=== PATIENT | female | born 1995 | race Caucasian/White ===

== ENCOUNTER 2017-03-17 03:08 | Emergency (ER) | payer OTHER ==
--- NOTE | 2017-03-17 04:28 | PDOC ---
History of Present Illness - General History Source: Patient <aDrius Callaway - Last Filed: 03/17/17 04:29> - General History Source: Patient Exam Limitations: No Limitations - History of Present Illness Initial Comments: 03/17/17 04:35 The patient is a 21 year old female with no significant past medical history who presents to the ED for 2 days of sore throat and L ear pain. She denies fever, chills, or diaphoresis. She denies any sick contacts or recent travels. The patient denies cough, SOB, chest pain, and palpitations. The patient denies abdominal pain, nausea, vomiting, and diarrhea. Allergies: NKDA Social History: No alcohol, tobacco, or drug use reported. Past Surgical History: None reported PCP: None reported <Fallon Jacques - Last Filed: 03/17/17 04:36> - General Time Seen by Provider: 03/17/17 04:24 Past History - Past Medical History Asthma: No Psychiatric Problems: Yes (depression/ANXIETY) - Reproductive History (#): 2 Para: 1 Spontaneous : 1 - Immunization History Immunization Up to Date: Yes - Psycho/Social/Smoking Cessation Hx Anxiety: Yes Suicidal Ideation: No Smoking Status: No Smoking History: Current every day smoker Have you smoked in the past 12 months: Yes Number of Cigarettes Smoked Daily: 3 If you are a former smoker, when did you quit?: 2 months ago 'Breaking Loose' booklet given: 09/10/16 Hx Alcohol Use: No Drug/Substance Use Hx: No Substance Use Type: None Hx Substance Use Treatment: No <CesiaLunaDarius - Last Filed: 03/17/17 04:29> <Fallon Jacques - Last Filed: 03/17/17 04:36> - Past Medical History Allergies/Adverse Reactions: Allergies Allergy/AdvReac Type Severity Reaction Status Date / Time No Known Drug Allergies Allergy Verified 09/10/16 14:06 shellfish derived Allergy Verified 09/10/16 14:06 Home Medications: Ambulatory Orders Amox-Tr/K Cl [Augmentin 500Mg Tablet] 1 tab PO BID #20 tablet 03/17/17 Ibuprofen [Motrin] 600 mg PO TID #30 tablet 03/17/17 Review of Systems - Review of Systems Able to Perform ROS?: Yes Comments:: 03/17/17 04:35 CONSTITUTIONAL: Absent: fever, no chills, no fatigue EYES: Absent: visual changes ENT: +L ear pain, sore throat CARDIOVASCULAR: Absent: chest pain, no palpitations RESPIRATORY: Absent: cough, no SOB GI: Absent: abdominal pain, no nausea, no vomiting, no constipation, no diarrhea GENITOURINARY: Absent: dysuria, no frequency, no hematuria MUSCULOSKELETAL: Absent: back pain, no arthralgia, no myalgia SKIN: Absent: rash NEURO: Absent: headache <Fallon Jacques - Last Filed: 03/17/17 04:36> *Physical Exam - Physical Exam Comments: 03/17/17 04:36 GENERAL: Well-appearing, well-nourished. No apparent distress. HEENT: Normocephalic, atraumatic. PERRL, EOM intact. Fluid behind left TM, no light reflex, landmarks not visualized, + otalgia. Oropharynx is clear. CARDIOVASCULAR: Normal S1, S2. Regular rate and rhythm. PULMONARY: Clear to auscultation bilaterally. ABDOMEN: Soft, non-distended, non-tender. EXTREMITIES: Normal ROM in all four extremities. No gross deformities. SKIN: Warm, dry. No rash NEUROLOGICAL: No focal neurological deficits. <Fallon Jacques - Last Filed: 03/17/17 04:36> Medical Decision Making - Medical Decision Making 03/17/17 04:30 Dr. Callaway: The scribe's documentation has been prepared under my direction and personally reviewed by me in its entirery. I confirm that the note above accurately reflects all work, treatment, procedures, and medical decision making performed by me. <Darius Callaway - Last Filed: 03/17/17 04:29> *DC/Admit/Observation/Transfer - Discharge Dispostion Admit: No <Darius Callaway - Last Filed: 03/17/17 04:29> - Attestations Scribe Attestion: 03/17/17 04:36 Documentation prepared by Fallon Jacques, acting as emergency medical dispatcher for Darius Callaway MD/. <Fallon Jacques - Last Filed: 03/17/17 04:36> Diagnosis at time of Disposition: Otitis media Qualifiers: Chronicity: acute Laterality: left - Discharge Dispostion Disposition: HOME Condition at time of disposition: Stable - Prescriptions Prescriptions: Amox-Tr/K Cl [Augmentin 500Mg Tablet] 1 tab PO BID #20 tablet Ibuprofen [Motrin] 600 mg PO TID #30 tablet - Patient Instructions Printed Discharge Instructions: DI for Otitis Media (Middle Ear Infection)- Child
== END 2017-03-17 04:24 | disposition home or self-care (01) ==
LOC: JER 03:08
DX: H66.92 Otitis media, unspecified, left ear (principal); F41.8 Other specified anxiety disorders; F17.210 Nicotine dependence, cigarettes, uncomplicated
CPT/HCPCS: 99281-25

== ENCOUNTER 2017-04-25 09:50 | Emergency (ER) | payer OTHER ==
[2017-04-25 10:00] VITALS: BP 123/74; PULSE 75; TEMP 98; BMI 20.9
[2017-04-25] MEDS ORDERED: IBUPROFEN 400 MG TABLET (FP) PO ONE ×2 (10:47→10:52)
[2017-04-25 11:08] LABS: BASOPHIL 0.3 % (0-2.0); EOSINOPHIL 0.4 % (0-4.5); MCH 29.6 pg (25.7-33.7); MCHC 32.9 g/dl (32.0-36.0); MEAN PLT VOLUME 9.4 fl (7.5-11.1); NEUTROPHILS 60.3 % (42.8-82.8); PLATELET COUNT 218 K/MM3 (134-434); RDW 12.9 % (11.6-15.6); WHITE BLOOD COUNT 4.7 K/mm3 (4.0-10.0)
--- NOTE | 2017-04-25 11:34 | PDOC ---
History of Present Illness - General Chief Complaint: Pain Stated Complaint: NECK PROBLEM Time Seen by Provider: 04/25/17 10:07 History Source: Patient Exam Limitations: No Limitations - History of Present Illness Initial Comments: 04/25/17 11:34 Patient is a 22-year-old female, no significant medical history currently only taking control presents with painful lump to right lateral upper back. Area with no erythema, patient with no history of abscesses. Patient states pain is 10 out of 10 at times took a Valium last night which she takes for her anxiety and it helped her go to sleep and relieved the pain. Patient denies fever, no chest pain, no shortness of breath. Occasional pain radiating down the right arm with no numbness or tingling or neuro or sensory difficulty. Past Medical History: Denies. Allergies: No known allergies Medications: control Family History: Non-contributory Social History: Denies smoking, alcohol use, or IVDU Review of Systems GENERAL/CONSTITUTIONAL: No fever or chills. No weakness. No weight change. HEAD, EYES, EARS, NOSE AND THROAT: No change in vision. No ear pain or discharge. No sore throat. CARDIOVASCULAR: No chest pain or shortness of breath. RESPIRATORY: No cough, wheezing, or hemoptysis. GASTROINTESTINAL: No nausea, vomiting, diarrhea or constipation. No rectal bleeding. GENITOURINARY: No dysuria, frequency, or change in urination. MUSCULOSKELETAL: No joint or muscle swelling or pain. No neck or back pain. SKIN : No rash or easy bruising. Painful palpable lump to right lateral upper back NEUROLOGIC: No headache, vertigo, loss of consciousness, or loss of sensation. ENDOCRINE: No increased thirst. No abnormal weight change. HEMATOLOGIC/LYMPHATIC: No anemia, easy bleeding, or history of blood clots. ALLERGIC/IMMUNOLOGIC: No hives or skin allergy. No latex allergy. Physical Exam: GENERAL: The patient is awake, alert, and fully oriented, in no acute distress. EYES: Pupils equal, round and reactive to light, extraocular movements intact, sclera anicteric, conjunctiva clear. ENT: Ears normal, nares patent, oropharynx clear without exudates. Moist mucous membranes. No uvula deviation NECK: Normal range of motion, supple without lymphadenopathy, JVD, or masses. LUNGS: Breath sounds equal, clear to auscultation bilaterally. No wheezes, and no crackles. HEART: Regular rate and rhythm, normal S1 and S2 without murmur, rub or gallop. ABDOMEN: Soft, nontender, normoactive bowel sounds. No guarding, no rebound. No masses. No bruising or abrasions MUSCULOSKELETAL: Normal range of motion, no edema. No clubbing or cyanosis. No cords, erythema, or tenderness. No CVA Tenderness with fist. NEUROLOGICAL: Cranial nerves II through XII grossly intact. Normal speech, normal gait. SKIN: Warm, Dry, normal turgor, no rashes or lesions noted. Lateral upper back painful palpable pea sized nodule, no erythema, no edema, no warmth to the area. Past History - Past Medical History Allergies/Adverse Reactions: Allergies Allergy/AdvReac Type Severity Reaction Status Date / Time No Known Drug Allergies Allergy Verified 04/25/17 10:00 shellfish derived Allergy Verified 04/25/17 10:00 Home Medications: Ambulatory Orders Diazepam [Valium] 2 mg PO DAILY 04/25/17 Ibuprofen [Motrin -] 400 mg PO QID #28 tablet 04/25/17 Asthma: No Psychiatric Problems: Yes (depression/ANXIETY) - Reproductive History (#): 2 Para: 1 Spontaneous : 1 - Immunization History Immunization Up to Date: Yes - Psycho/Social/Smoking Cessation Hx Anxiety: Yes Suicidal Ideation: No Smoking Status: No Smoking History: Current every day smoker Have you smoked in the past 12 months: Yes Number of Cigarettes Smoked Daily: 4 If you are a former smoker, when did you quit?: 2 months ago Information on smoking cessation initiated: No 'Breaking Loose' booklet given: 09/10/16 Hx Alcohol Use: No Drug/Substance Use Hx: No Substance Use Type: None Hx Substance Use Treatment: No *Physical Exam - Vital Signs Last Vital Signs Temp Pulse Resp BP Pulse Ox 98 F 75 18 123/74 100 04/25/17 09:57 04/25/17 09:57 04/25/17 09:57 04/25/17 09:57 04/25/17 09:57 ED Treatment Course - LABORATORY CBC & Chemistry Diagram: 04/25/17 11:00 - ADDITIONAL ORDERS Additional order review: 04/25/17 11:00 RBC 4.55 MCV 90.0 MCHC 32.9 RDW 12.9 MPV 9.4 Neutrophils % 60.3 Lymphocytes % 31.6 Monocytes % 7.4 Eosinophils % 0.4 Basophils % 0.3 - Medications Given in the ED: ED Medications Discontinued Medications Generic Name Dose Route Start Last Admin Trade Name Misti PRN Reason Stop Dose Admin Ibuprofen 400 mg 04/25/17 10:47 04/25/17 10:52 Motrin - PO 04/25/17 10:48 400 mg ONCE ONE Administration Medical Decision Making - Medical Decision Making 04/25/17 11:42 A/P : Nodule to the right upper back. No evidence of abscess. Will draw a CBC, rule out infectious process. Most likely will need to be seen by derm. Possible cyst. Motrin for pain Will DC with instruction to follow up with dermatology. Motrin for pain. Laboratory Results - last 24 hr 04/25/17 11:00 WBC 4.7 RBC 4.55 Hgb 13.5 Hct 40.9 MCV 90.0 MCH 29.6 MCHC 32.9 RDW 12.9 Plt Count 218 MPV 9.4 Neutrophils % 60.3 Lymphocytes % 31.6 Monocytes % 7.4 Eosinophils % 0.4 Basophils % 0.3 Labs reviewed and unremarkable. I discussed the physical exam findings, ancillary test results and final diagnoses with the patient. I answered all of the patient's questions. The patient was satisfied with the care received and felt comfortable with the discharge plan and treatment plan. The patient will call to arrange follow-up and will return to the Emergency Department with any new, persistent or worsening symptoms. *DC/Admit/Observation/Transfer Diagnosis at time of Disposition: Cyst - Discharge Dispostion Disposition: HOME Condition at time of disposition: Good Admit: No - Prescriptions Prescriptions: Ibuprofen [Motrin -] 400 mg PO QID #28 tablet - Referrals Referrals: [facility] [Provider Group] Tad Escamilla [Non Staff, Medical] - ([phone]) - Patient Instructions Additional Instructions: Please monitor area for any increased redness swelling or signs of infection Recommend follow-up with dermatology as soon as possible for evaluation, Dr. escamilla Follow up with [facility] for primary care doctor - Post Discharge Activity Work/School Note: Back to Work
== END 2017-04-25 11:52 | disposition home or self-care (01) ==
LOC: JERFT 09:50
DX: L72.8 Other follicular cysts of the skin and subcutaneous tissue (principal)
CPT/HCPCS: 36415; 85025; 99281-25

== ENCOUNTER 2017-04-29 10:49 | Emergency (ER) | payer OTHER ==
[2017-04-29 10:56] VITALS: BMI 20.9
[2017-04-29] MEDS ORDERED: ONDANSETRON 4 MG/2 ML VIAL IVPUSH ONE (11:51)
[2017-04-29] MEDS ORDERED: SODIUM CHLORIDE 1,000 ML IV STA (11:51)
[2017-04-29] MEDS ORDERED: ONDANSETRON 4 MG/2 ML VIAL ONE (12:00)
--- NOTE | 2017-04-29 12:02 | PDOC ---
History of Present Illness - General History Source: Patient - History of Present Illness Timing/Duration: reports: constant Pain Radiation: reports: LUQ <Sosa Bower - Last Filed: 04/29/17 13:26> <Randy Teresa - Last Filed: 04/29/17 18:08> - General Chief Complaint: Vomiting/Diarrhea Stated Complaint: ABD PAIN/VOMITING Time Seen by Provider: 04/29/17 11:37 Past History - Past Medical History Asthma: No Psychiatric Problems: Yes (depression/ANXIETY) - Reproductive History (#): 2 Para: 1 Spontaneous : 1 - Immunization History Immunization Up to Date: Yes - Psycho/Social/Smoking Cessation Hx Anxiety: Yes Suicidal Ideation: No Smoking Status: No Smoking History: Former smoker Have you smoked in the past 12 months: Yes Number of Cigarettes Smoked Daily: 4 If you are a former smoker, when did you quit?: 2 months ago Information on smoking cessation initiated: No 'Breaking Loose' booklet given: 09/10/16 Hx Alcohol Use: No Drug/Substance Use Hx: No Substance Use Type: None Hx Substance Use Treatment: No <Sosa Bower - Last Filed: 04/29/17 13:26> <Randy Teresa - Last Filed: 04/29/17 18:08> - Past Medical History Allergies/Adverse Reactions: Allergies Allergy/AdvReac Type Severity Reaction Status Date / Time No Known Drug Allergies Allergy Verified 04/29/17 10:52 shellfish derived Allergy Verified 04/29/17 10:52 Home Medications: Ambulatory Orders NK [No Known Home Medication] 04/29/17 Review of Systems - Review of Systems Constitutional: No: Chills, Fever ABD/GI: Yes: Diarrhea, Nausea, Vomiting. No: Blood Streaked Bowels, Constipated <Mone BowerJovannyTahmina - Last Filed: 04/29/17 13:26> *Physical Exam - Vital Signs Last Vital Signs Temp Pulse Resp BP Pulse Ox 97.7 F 96 H 16 112/83 97 04/29/17 10:52 04/29/17 10:52 04/29/17 10:52 04/29/17 10:52 04/29/17 10:52 - Physical Exam General Appearance: Yes: Appropriately Dressed. No: Apparent Distress HEENT: positive: Normal Voice Neck: positive: Supple Respiratory/Chest: negative: Respiratory Distress Gastrointestinal/Abdominal: positive: Soft. negative: Tender Integumentary: positive: Dry, Warm Neurologic: positive: Fully Oriented, Alert, Normal Mood/Affect <Sosa Bower - Last Filed: 04/29/17 13:26> - Vital Signs Last Vital Signs Temp Pulse Resp BP Pulse Ox 98.2 F 87 20 135/80 98 04/29/17 13:46 04/29/17 13:46 04/29/17 13:46 04/29/17 13:46 04/29/17 13:46 <Randy Teresa - Last Filed: 04/29/17 18:08> ED Treatment Course - LABORATORY CBC & Chemistry Diagram: 04/29/17 12:00 04/29/17 12:00 <Mone BowerElen - Last Filed: 04/29/17 13:26> - LABORATORY CBC & Chemistry Diagram: 04/29/17 12:00 04/29/17 12:00 - ADDITIONAL ORDERS Additional order review: Laboratory Results 04/29/17 04/29/17 12:00 11:57 Sodium 140 Potassium 4.1 Chloride 107 Carbon Dioxide 24 Anion Gap 9 BUN 13 Creatinine 0.8 Creat Clearance w eGFR > 60 Random Glucose 84 Calcium 9.4 Total Bilirubin 0.6 AST 18 ALT 19 Alkaline Phosphatase 67 D Total Protein 7.8 Albumin 4.2 Urine Color Yellow Urine Appearance Clear Urine pH 7.0 Ur Specific [place] 1.020 Urine Protein 1+ H Urine Glucose (UA) Negative Urine Ketones Negative Urine Blood 2+ H Urine Nitrite Negative Urine Bilirubin Negative Urine Urobilinogen Negative Ur Leukocyte Esterase Negative Urine RBC 3 Urine WBC 18 Ur Epithelial Cells Moderate Urine Mucus Many Urine HCG, Qual Negative 04/29/17 12:00 RBC 4.83 MCV 91.2 MCHC 32.5 RDW 13.1 MPV 9.2 Neutrophils % 87.9 H D Lymphocytes % 6.7 L D Monocytes % 5.2 Eosinophils % 0.1 Basophils % 0.1 - Medications Given in the ED: ED Medications Discontinued Medications Generic Name Dose Route Start Last Admin Trade Name Freq PRN Reason Stop Dose Admin Sodium Chloride 1,000 mls @ 1,000 mls/hr 04/29/17 11:51 04/29/17 12:23 Normal Saline - IV 04/29/17 12:50 1,000 mls/hr ASDIR STA Administration Ondansetron HCl 4 mg 04/29/17 11:51 04/29/17 12:09 Zofran Injection IVPUSH 04/29/17 11:52 4 mg ONCE ONE Administration <Randy Teresa - Last Filed: 04/29/17 18:08> Medical Decision Making - Medical Decision Making 04/29/17 11:56 22-year-old female, no significant history here with sudden onset, nausea, vomiting and left upper abdominal pain that started this a.m. No unusual food, sick contacts, recent travel or abx use. See exam Probable gastroenteritis Stable and well kathi a/ benign abd -supportive tx -check basic labs 04/29/17 12:02 04/29/17 13:26 Labs unremarkable. Patient reports feeling better. Will dc with supportive treatment 04/29/17 13:34 <Sosa Bower - Last Filed: 04/29/17 13:26> - Medical Decision Making 04/29/17 18:05 The patient was seen and evaluated in conjunction with KENDRICK Bower under my direct supervision, ancillary studies were reviewed. I agree with the plan as outlined by KENDRICK Bower . <Randy Teresa - Last Filed: 04/29/17 18:08> *DC/Admit/Observation/Transfer <Sosa Bower - Last Filed: 04/29/17 13:26> <Randy Teresa - Last Filed: 04/29/17 18:08> Diagnosis at time of Disposition: Diarrhea Qualifiers: Diarrhea type: unspecified type Qualified Code(s): R19.7 - Diarrhea, unspecified - Discharge Dispostion Disposition: HOME Condition at time of disposition: Improved - Patient Instructions Printed Discharge Instructions: DI for Viral Gastroenteritis -- Adult Additional Instructions: Maintain adequate hydration, for the remainder of your symptoms, maintain a bland diet such as bananas, rice, applesauce and toast. These foods can help make your stools firmer and also replete certainly essential electrolytes. Please follow up with your primary care physician as needed
[2017-04-29 12:20] LABS: BASOPHIL 0.1 % (0-2.0); EOSINOPHIL 0.1 % (0-4.5); MCH 29.6 pg (25.7-33.7); MCHC 32.5 g/dl (32.0-36.0); MEAN CELL VOLUME 91.2 fl (80-96); MEAN PLT VOLUME 9.2 fl (7.5-11.1); NEUTROPHILS 87.9 % (42.8-82.8); PLATELET COUNT 224 K/MM3 (134-434); RDW 13.1 % (11.6-15.6); WHITE BLOOD COUNT 11.3 K/mm3 (4.0-10.0)
[2017-04-29 12:28] LABS: URINE APPEARANCE CLEAR; URINE BILIRUBIN NEGATIVE (NEGATIVE); URINE BLOOD 2+ (NEGATIVE); URINE COLOR YELLOW; URINE GLUCOSE (UA) NEGATIVE (NEGATIVE); URINE KETONE NEGATIVE (NEGATIVE); URINE LEUK ESTERASE NEGATIVE (NEGATIVE); URINE NITRITE NEGATIVE (NEGATIVE); URINE UROBILINOGEN NEGATIVE mg/dL (0.2-1.0)
[2017-04-29 12:29] LABS: URINE PROTEIN 1+ (NEGATIVE)
[2017-04-29 13:02] LABS: URINE MUCUS MANY; URINE RBC 3 /hpf (0-3); URINE WBC 18 /hpf (3-5)
[2017-04-29 13:03] LABS: ALBUMIN 4.2 g/dl (3.4-5.0); ANION GAP 9 (8-16); BILIRUBIN,TOTAL 0.6 mg/dL (0.2-1.0); CALCIUM 9.4 mg/dL (8.5-10.1); CO2 24 mmol/L (21-32); CREATININE 0.8 mg/dL (0.55-1.02); GLUCOSE,RANDOM 84 mg/dL (74-106); SGOT/AST 18 U/L (15-37); SGPT/ALT 19 U/L (12-78); TOT PROT 7.8 g/dl (6.4-8.2)
[2017-04-29 13:04] LABS: ALK PHOS 67 U/L (45-117)
[2017-04-29 13:47] VITALS: BP 135/80; PULSE 87; TEMP 98.2
== END 2017-04-29 13:47 | disposition home or self-care (01) ==
LOC: JER 10:49
PROC: 3E0337Z Introduction of Electrolytic and Water Balance Substance into Peripheral Vein, Percutaneous Approach (ICD-10-PCS; principal; 2017-04-29)
PROC: 3E033GC Introduction of Other Therapeutic Substance into Peripheral Vein, Percutaneous Approach (ICD-10-PCS; 2017-04-29)
DX: A08.4 Viral intestinal infection, unspecified (principal); B97.89 Other viral agents as the cause of diseases classified elsewhere
CPT/HCPCS: 36415; 80053; 81003; 81015; 84703; 85025; 96361; 96374; 99282-25

== ENCOUNTER 2017-06-22 12:23 | Emergency (ER) | payer SELFPAY ==
[2017-06-22 12:54] VITALS: BP 115/74; PULSE 108; TEMP 98.5; BMI 20.9
[2017-06-22] MEDS ORDERED: DIPHTH,PERTUSS(ACELL),TET 0.5 ML DISP.SYRIN IM ONE (13:53)
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
[2017-06-22] MEDS ORDERED: KETOROLAC TROMETHAMINE 60 MG/2 ML VIAL IM ONE (15:12)
[2017-06-22] MEDS ORDERED: KETOROLAC TROMETHAMINE 60 MG/2 ML VIAL ONE (15:28)
== END 2017-06-22 15:32 | disposition home or self-care (01) ==
LOC: JERFT 12:23
PROC: 3E0234Z Introduction of Serum, Toxoid and Vaccine into Muscle, Percutaneous Approach (ICD-10-PCS; principal; 2017-06-22)
PROC: 3E0233Z Introduction of Anti-inflammatory into Muscle, Percutaneous Approach (ICD-10-PCS; 2017-06-22)
DX: M54.2 Cervicalgia (principal); S51.852A Open bite of left forearm, initial encounter; Y04.1XXA Assault by human bite, initial encounter; Y93.89 Activity, other specified; Y92.89 Other specified places as the place of occurrence of the external cause; Y99.8 Other external cause status
CPT/HCPCS: 84703; 90715; 99281-25

== ENCOUNTER 2017-12-27 14:07 | Emergency (ER) | payer OTHER ==
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
[2017-12-27] MEDS ORDERED: ACETAMINOPHEN 325 MG TABLET (FP) PO ONE (14:32)
[2017-12-27 14:36] VITALS: BMI 20.9
[2017-12-27] MEDS ORDERED: BACITRACIN 0.9 GM PACKET ONE (16:31)
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
[2017-12-27] MEDS ORDERED: DIPHTH,PERTUSS(ACELL),TET 0.5 ML DISP.SYRIN IM ONE (17:36)
[2017-12-27 18:21] VITALS: BP 113/73; PULSE 72; TEMP 98.2
== END 2017-12-27 18:21 | disposition home or self-care (01) ==
LOC: JER 14:07
DX: M79.672 Pain in left foot (principal); V47.6XXA Car passenger injured in collision with fixed or stationary object in traffic accident, initial encounter; Y93.89 Activity, other specified; Y92.410 Unspecified street and highway as the place of occurrence of the external cause; Z87.891 Personal history of nicotine dependence
CPT/HCPCS: 72170-TC-FY; 72220-TC-FY; 73610-TC-LT-FY; 73630-TC-LT; 99282-25

== ENCOUNTER 2018-02-16 12:48 | Emergency (ER) | payer OTHER ==
[2018-02-16 12:55] VITALS: BP 102/68; PULSE 106; TEMP 98.7; BMI 20.9
[2018-02-16] MEDS ORDERED: predniSONE 20 MG TABLET (UD) ONE (13:37)
--- NOTE | 2018-02-16 13:41 | PDOC ---
History of Present Illness - General Chief Complaint: Rash Stated Complaint: RASH Time Seen by Provider: 02/16/18 13:28 History Source: Patient - History of Present Illness Timing/Duration: reports: yesterday Location: reports: generalized Past History - Past Medical History Allergies/Adverse Reactions: Allergies Allergy/AdvReac Type Severity Reaction Status Date / Time No Known Drug Allergies Allergy Verified 02/16/18 12:52 shellfish derived Allergy Verified 02/16/18 12:52 Home Medications: Ambulatory Orders Loratadine [Claritin] 10 mg PO DAILY #7 tablet 02/16/18 Prednisone [Deltasone] 40 mg PO DAILY #8 tablet 02/16/18 Asthma: No COPD: No Psychiatric Problems: Yes (depression/ANXIETY) - Reproductive History (#): 2 Para: 1 Spontaneous : 1 - Immunization History Immunization Up to Date: Yes - Suicide/Smoking/Psychosocial Hx Smoking Status: No Smoking History: Never smoked Have you smoked in the past 12 months: Yes Number of Cigarettes Smoked Daily: 4 If you are a former smoker, when did you quit?: 2 months ago Information on smoking cessation initiated: No 'Breaking Loose' booklet given: 09/10/16 Hx Alcohol Use: No Drug/Substance Use Hx: No Substance Use Type: Marijuana Hx Substance Use Treatment: No Review of Systems - Review of Systems Constitutional: No: Fever Respiratory: No: Shortness of Breath, Stridor, Wheezing Integumentary: Yes: Pruritus, Rash *Physical Exam - Vital Signs Last Vital Signs Temp Pulse Resp BP Pulse Ox 98.7 F 106 H 16 102/68 97 02/16/18 12:52 02/16/18 12:52 02/16/18 12:52 02/16/18 12:52 02/16/18 12:52 - Physical Exam General Appearance: Yes: Appropriately Dressed. No: Apparent Distress HEENT: positive: Normal Voice, Other (no angioedema) Neck: positive: Supple. negative: Stridor Respiratory/Chest: positive: Lungs Clear, Normal Breath Sounds. negative: Respiratory Distress Integumentary: positive: Dry, Warm, Hives (hives to trunk, upper extremities and lower extremities) Neurologic: positive: Fully Oriented, Alert, Normal Mood/Affect Medical Decision Making - Medical Decision Making 02/16/18 13:37 22-year-old female, no significant history here with pruritic rash, generalized pruritic rash that patient develop yesterday while in her friend's house. Denies any new topical agents such as detergents, lotions, soaps and no history of bites. Took 50 mg of Benadryl this a.m. with no significant relief. Denies lip, tongue swelling or shortness of breath. No known food or drug allergies and no history of anaphylaxis. Patient well-appearing and stable with generalized hives. Dose of prednisone given in ED, will sent home with prednisone taper and antihistamine. Reasons to return discussed with patient *DC/Admit/Observation/Transfer Diagnosis at time of Disposition: Hives - Discharge Dispostion Disposition: HOME Condition at time of disposition: Good - Prescriptions Prescriptions: Loratadine [Claritin] 10 mg PO DAILY #7 tablet Prednisone [Deltasone] 40 mg PO DAILY #8 tablet - Referrals - Patient Instructions Printed Discharge Instructions: DI for Hives Additional Instructions: Take medications as prescribed and if symptoms worsen, return to the ED - Post Discharge Activity
[2018-02-16] MEDS ORDERED: predniSONE 20 MG TABLET (UD) PO ONE (13:42)
== END 2018-02-16 13:45 | disposition home or self-care (01) ==
LOC: JERFT 12:48 → JER 12:48 → JERFT 13:45
DX: L50.8 Other urticaria (principal)
CPT/HCPCS: 99281-25

== ENCOUNTER 2019-08-06 22:02 | Emergency (ER) | payer OTHER ==
[2019-08-06 22:21] VITALS: TEMP 98.3; BMI 21.9
--- NOTE | 2019-08-06 22:44 | PDOC ---
History of Present Illness - General Chief Complaint: Cold Symptoms Stated Complaint: BREATHING PROBLEM Time Seen by Provider: 08/06/19 22:29 History Source: Patient - History of Present Illness Initial Comments: 08/07/19 01:23 24-year-old female complaining of chest congestion and cough, nasal congestion with subjective fevers for the last 2 days. Patient reports that she quit smoking 2 days ago due to chest congestion. Denies recent travel, OCP use, prolonged sitting. Past medical history of asthma exacerbation with viral illness Patient reports that she does not have any albuterol medication at home. Past History - Past Medical History Allergies/Adverse Reactions: Allergies Allergy/AdvReac Type Severity Reaction Status Date / Time No Known Drug Allergies Allergy Verified 02/16/18 12:52 shellfish derived Allergy Verified 02/16/18 12:52 Home Medications: Ambulatory Orders Loratadine [Claritin] 10 mg PO DAILY #7 tablet 02/16/18 Prednisone [Deltasone] 40 mg PO DAILY #8 tablet 02/16/18 Albuterol Sulfate Inhaler - [Ventolin HFA Inhaler -] 1 - 2 inh PO Q4H #1 inhaler 08/07/19 Azithromycin [Zithromax 250mg Tablets -] 250 mg PO UTDICT #6 tab 08/07/19 predniSONE [Deltasone -] 40 mg PO DAILY #6 tablet 08/07/19 Asthma: No COPD: No Psychiatric Problems: Yes (depression/ANXIETY) - Reproductive History (#): 2 Para: 1 Spontaneous : 1 - Immunization History Immunization Up to Date: Yes - Psycho Social/Smoking Cessation Hx Smoking Status: No Smoking History: Former smoker Have you smoked in the past 12 months: Yes Number of Cigarettes Smoked Daily: 4 If you are a former smoker, when did you quit?: t-3 Information on smoking cessation initiated: Yes 'Breaking Loose' booklet given: 09/10/16 Hx Alcohol Use: No Drug/Substance Use Hx: No Substance Use Type: Marijuana Hx Substance Use Treatment: No Review of Systems - Review of Systems Able to Perform ROS?: Yes Constitutional: Yes: Fever (subjective) Respiratory: Yes: Cough Cardiac (ROS): Yes: Chest Tightness ABD/GI: No: Symptoms Reported, See HPI, Abdominal Distended, Abd. Pain w/ defecation, Blood Streaked Bowels, Constipated, Diarrhea, Difficulty Swallowing , Nausea, Poor Appetite, Poor Fluid Intake, Rectal Bleeding, Vomiting, Indigestion, Abdominal cramping, Tarry Stools, Other *Physical Exam - Vital Signs Last Vital Signs Temp Pulse Resp BP Pulse Ox 98.3 F 96 H 22 H 114/77 98 08/06/19 22:16 08/06/19 22:16 08/06/19 22:16 08/06/19 22:16 08/06/19 22:16 - Physical Exam General Appearance: Yes: Appropriately Dressed HEENT: positive: Tonsillar Erythema Neck: positive: Lymphadenopathy (R), Lymphadenopathy (L) Respiratory/Chest: positive: Lungs Clear, Normal Breath Sounds Cardiovascular: positive: Regular Rhythm, Regular Rate Gastrointestinal/Abdominal: positive: Normal Bowel Sounds, Soft Integumentary: positive: Normal Color, Dry, Warm Neurologic: positive: Fully Oriented, Alert, Normal Mood/Affect ED Treatment Course - RADIOLOGY Radiology Studies Ordered: Category Date Time Status CHEST PA & LAT [RAD] Stat Radiology 08/06/19 22:43 Ordered ED Progress Note - Progress Note Progress Note: 08/07/19 01:29 A: bronchitis P: chest xray ekg rapid strep duoneb x1 prednisone tylenol Discharge - Discharge Information Problems reviewed: Yes Clinical Impression/Diagnosis: Bronchitis Disposition: HOME - Additional Discharge Information Prescriptions: Albuterol Sulfate Inhaler - [Ventolin HFA Inhaler -] 1 - 2 inh PO Q4H #1 inhaler Azithromycin [Zithromax 250mg Tablets -] 250 mg PO UTDICT #6 tab predniSONE [Deltasone -] 40 mg PO DAILY #6 tablet - Follow up/Referral - Patient Discharge Instructions Patient Printed Discharge Instructions: DI for Acute Bronchitis Additional Instructions: Use albuterol every 4-6 hours as needed for cough. Use Take azithromycin as prescribed. Start prednisone tomorrow evening It is important that you follow-up with your primary doctor Please return to the emergency room for any worsening symptoms - Post Discharge Activity Work/Back to School Note: Back to Work
[2019-08-06] MEDS ORDERED: ALBUTEROL SO4 2.5/IPRATROPIUM 0.5 INH SOL 3 ML VIAL.NEB. NEB ONE (23:15)
[2019-08-06] MEDS: ALBUTEROL SO4 2.5/IPRATROPIUM 0.5 INH SOL 3 ML VIAL.NEB. NEB SCH ×3 (23:27→23:28)
[2019-08-07] MEDS ORDERED: ACETAMINOPHEN 325 MG TABLET (FP) ONE (00:58)
[2019-08-07] MEDS ORDERED: predniSONE 20 MG TABLET (UD) PO ONE (01:32)
[2019-08-07 01:43] VITALS: BP 110/82; PULSE 84
[2019-08-07] MEDS ORDERED: predniSONE 20 MG TABLET (UD) ONE (01:51)
--- NOTE | 2019-08-07 12:11 | EKG ---
Test Reason : Blood Pressure : / mmHG Vent. Rate : 078 BPM Atrial Rate : 078 BPM P-R Int : 116 ms QRS Dur : 074 ms QT Int : 370 ms P-R-T Axes : 068 087 026 degrees QTc Int : 421 ms NORMAL SINUS RHYTHM BIATRIAL ENLARGEMENT ABNORMAL ECG WHEN COMPARED WITH ECG OF 22-DEC-2015 13:46, NO SIGNIFICANT CHANGE WAS FOUND Confirmed by MAYCO ALONSO MD ([id number]) on 08/07/2019 12:10:48 PM Referred By: Confirmed By:MAYCO ALONSO MD
== END 2019-08-07 01:55 | disposition home or self-care (01) ==
LOC: JER 22:02
DX: J20.9 Acute bronchitis, unspecified (principal); Z91.013 Allergy to seafood; Z87.891 Personal history of nicotine dependence; Z86.59 Personal history of other mental and behavioral disorders; Z87.09 Personal history of other diseases of the respiratory system
CPT/HCPCS: 71046-TC-FY; 84703; 87070; 87880; 93005; 93010; 99283-25

== ENCOUNTER 2019-12-10 12:06 | Emergency (ER) | payer OTHER ==
[2019-12-10 12:28] VITALS: BP 103/73; PULSE 70; TEMP 97.9; BMI 20.9
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
[2019-12-10] MEDS ORDERED: ACETAMINOPHEN 500 MG TABLET (FP) PO ONE (12:30)
[2019-12-10] MEDS ORDERED: ACETAMINOPHEN 325 MG TABLET (FP) ONE (12:41)
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
== END 2019-12-10 14:23 | disposition home or self-care (01) ==
LOC: JERFT 12:06
DX: G44.319 Acute post-traumatic headache, not intractable (principal); S09.8XXA Other specified injuries of head, initial encounter; Y04.2XXA Assault by strike against or bumped into by another person, initial encounter; Y93.89 Activity, other specified; Y92.89 Other specified places as the place of occurrence of the external cause; Y99.8 Other external cause status; Y07.411 Sister, perpetrator of maltreatment and neglect; F41.8 Other specified anxiety disorders; F32.9 Major depressive disorder, single episode, unspecified; Z87.891 Personal history of nicotine dependence
CPT/HCPCS: 70450-TC; 99284-25

== ENCOUNTER 2020-05-15 11:08 | Emergency (ER) | payer OTHER ==
[2020-05-15 11:17] VITALS: BP 101/64; PULSE 100; BMI 22.9
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
[2020-05-15 13:08] LABS: ARTERIAL BLD GAS O2 SATURATION 98.1 mmHg (95-98); ARTERIAL BLOOD GAS PO2 106.9 mmHg (80-100); ARTERIAL BLOOD GAS pH 7.433 (7.350-7.450)
== END 2020-05-15 13:05 | disposition home or self-care (01) ==
LOC: JER 11:08
DX: T58.91XA Toxic effect of carbon monoxide from unspecified source, accidental (unintentional), initial encounter (principal)
CPT/HCPCS: 36600; 82375; 82803; 83050; 99283-25

== ENCOUNTER 2020-05-27 20:48 | Emergency (ER) | payer OTHER ==
[2020-05-27 21:00] VITALS: TEMP 98.9; BMI 22.9
--- NOTE | 2020-05-27 22:02 | PDOC ---
History of Present Illness - General Chief Complaint: Vaginal Bleeding Stated Complaint: 6 WK TN/VAGINAL BLEEDING Time Seen by Provider: 05/27/20 21:29 History Source: Patient Exam Limitations: No Limitations - History of Present Illness Initial Comments: 05/27/20 22:00 25-year-old female no past medical history G2, P1 presented to ED at 6 weeks gestation with vaginal spotting for 2 days. Patient states that yesterday she used 2 pads not soaked and today as well used 1 pad. Patient is complaining of lower abdominal cramping without nausea vomiting diarrhea. Patient has 1 sexual partner and is monogamous. Pt otherwise denies: fevers, chills, syncope, lightheadedness, dizziness, headaches, neck pain, chest pain, shortness of breath, palpitations, back pain, abdominal pain, nausea, vomiting, diarrhea, constipation. Past History - Medical History Allergies/Adverse Reactions: Allergies Allergy/AdvReac Type Severity Reaction Status Date / Time No Known Drug Allergies Allergy Verified 02/25/20 11:56 shellfish derived Allergy Verified 02/25/20 11:56 Home Medications: Ambulatory Orders Escitalopram Oxalate [Lexapro -] 10 mg PO DAILY 12/10/19 hydrOXYzine PAMOATE [Vistaril -] 12.5 mg PO TID 12/10/19 Doxycycline Monohydrate [Monodox] 100 mg PO Q12H #14 capsule 02/25/20 Asthma: No COPD: No Psychiatric Problems: Yes (depression/ANXIETY) - Reproductive History Is Patient Now?: Yes (#): 2 Para: 1 Spontaneous : 1 - Immunization History Immunization Up to Date: Yes - Psycho-Social/Smoking History Smoking Status: No Smoking History: Never smoked Have you smoked in the past 12 months: No Number of Cigarettes Smoked Daily: 4 If you are a former smoker, when did you quit?: t-3 'Breaking Loose' booklet given: 09/10/16 - Substance Abuse Hx (Audit-C & DAST Scrn) How often the patient has a drink containing alcohol: Never Score: In Men: 4 or > Positive; In Women: 3 or > Positive: 0 Screen Result (Pos requires Nsg. Audit-10AR): Negative In the last yr the pt used illegal drug/Rx for NonMed reason: No Score: Yes response is considered Positive: 0 Screen Result (Positive result requires Nsg. DAST-10): Negative *Physical Exam - Vital Signs Last Vital Signs Temp Pulse Resp BP Pulse Ox 98.9 F 89 19 114/66 100 05/27/20 20:53 05/27/20 20:53 05/27/20 20:53 05/27/20 20:53 05/27/20 20:53 - Physical Exam 05/27/20 22:01 Gen: AAOx 3, no acute distress, comfortable, no signs of respiratory distress HENT: atraumatic, normocephalic with no laceration or contusion. Nasal mucosa without erythema. Oropharynx without erythema or exudates. Mucous membranes m oist. EYES: PERRL, EOM intact, conjunctiva pink NECK: supple; trachea midline; no JVD, no lymphadenopathy, or thyromegaly CV: RRR no murmurs, gallops, or rubs. CHEST: CTA b/l no wheezing, rales or rhonchi ABD: +BS/ND. no TTP; soft, no rebound, no guarding PELVIC: No external lesions, vaginal vault: + white discharge, minimal blood in vault, - midline tenderness elicited with manual exam, no CMT or adnexal tenderness; os closed EXTREMITY: no cyanosis or erythema. 2+ dorsalis pedis, posterior tibial, and radial pulse. No pedal edema; no calf swelling or tenderness SKIN: no rash, warm and dry, no diaphoresis HEME: no purpura or ecchymosis NEURO: normal speech, CN II-XII intact, sensation intact, normal gait, no cerebellar deficits MS: 5/5 strength in all extremities, FROM intact in all extremities. ED Treatment Course - LABORATORY CBC & Chemistry Diagram: 05/27/20 21:49 05/27/20 21:49 - RADIOLOGY Radiology Studies Ordered: Category Date Time Status TRANSVAGINAL US PREG [US] Stat Ultrasound 05/27/20 21:36 Ordered Medical Decision Making - Medical Decision Making 05/27/20 22:01 25-year-old female 6 weeks gestation with vaginal spotting Vital signs stable Will obtain labs UA UC GC and transvaginal ultrasound Will reassess based on results CBC stable Beta-hCG 2517.2 UA negative for UTI Rh: + Rest of labs noncontributory Ultrasound shows a 0.7 cm fluid structure within the endometrial canal probably representing a true gestational sac and less likely a pseudo-gestational sac associated with ectopic no associated embryonic pole or yolk sac is visualized Aged approximately 5 weeks 2 days Patient to follow-up FOR REPEAT BETA HCG MONDAY and 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 Reasons to return emergently to ER explained and given. Importance of follow up with PMD and other specialists as indicated stressed to pt. Pt verbalized understanding of instruc tions. Pt to follow up with PMD in 2 days. Discharge - Discharge Information Problems reviewed: Yes Clinical Impression/Diagnosis: Vaginal bleeding before 22 weeks gestation Condition: Stable Disposition: HOME - Follow up/Referral - Patient Discharge Instructions Patient Printed Discharge Instructions: DI for Vaginal Bleeding During Additional Instructions: FOLLOW UP MONDAY FOR REPEAT BLOOD WORK - Post Discharge Activity
[2020-05-27 22:05] LABS: BASO % 0.3 % (0-2.0); EOS % 0.9 % (0-4.5); HEMATOCRIT 38.8 % (32.4-45.2); HEMOGLOBIN 13.1 GM/dL (10.7-15.3); LYMPH % 31.8 % (8-40); MCH 31.8 pg (25.7-33.7); MCHC 33.8 g/dl (32.0-36.0); MEAN CELL VOLUME 94.1 fl (80-96); MEAN PLT VOLUME 9.2 fl (7.5-11.1); MONO % 11.2 % (3.8-10.2); NEUT % 55.8 % (42.8-82.8); PLATELET COUNT 206 K/MM3 (134-434); RBC 4.12 M/mm3 (3.60-5.2); WHITE BLOOD COUNT 5.8 K/mm3 (4.0-10.0)
[2020-05-27 22:15] LABS: INR 1.23 (0.83-1.09); PROTHROMBIN TIME (PATIENT) 14.6 SEC (9.7-13.0)
[2020-05-27 22:18] LABS: ACTIVATED PTT 31.7 SECONDS (25.2-36.5)
[2020-05-27 22:57] LABS: ALBUMIN 3.9 g/dl (3.4-5.0); BILIRUBIN,TOTAL 0.4 mg/dL (0.2-1); BLOOD UREA NITROGEN 15.4 mg/dL (7-18); CALCIUM 8.5 mg/dL (8.5-10.1); CREATININE 0.7 mg/dL (0.55-1.3); POTASSIUM 3.9 mmol/L (3.5-5.1); TOT PROT 7.2 g/dl (6.4-8.2)
[2020-05-27 23:06] LABS: EPI CELLS 27 /uL (0-25.1); HYALINE CASTS 1 /uL (0-3.1); URINE APPEARANCE CLEAR; URINE BACTERIA 243 /uL (0-1359); URINE BILIRUBIN NEGATIVE (NEGATIVE); URINE COLOR YELLOW; URINE GLUCOSE (UA) NEGATIVE (NEGATIVE); URINE KETONE NEGATIVE (NEGATIVE); URINE LEUK ESTERASE 1+ (NEGATIVE); URINE NITRITE NEGATIVE (NEGATIVE); URINE PROTEIN NEGATIVE (NEGATIVE); URINE RBC 8 /uL (0-23.9); URINE UROBILINOGEN 0.2 mg/dL (0.2-1.0); URINE WBC 18 /uL (0-25.8)
[2020-05-28 00:10] VITALS: BP 118/72; PULSE 80
== END 2020-05-28 00:11 | disposition home or self-care (01) ==
LOC: JER 20:48
DX: O20.0 Threatened abortion (principal); Z3A.01 Less than 8 weeks gestation of pregnancy
CPT/HCPCS: 36415; 76817-TC; 80053; 81003; 84702; 85025; 85610; 85730; 86850; 86900; 86901; 87086; 87491; 87591; 99284-25

== ENCOUNTER 2020-05-31 20:15 | Emergency (ER) | payer OTHER ==
[2020-05-31 20:30] VITALS: BMI 22.9
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
[2020-05-31] MEDS ORDERED: ACETAMINOPHEN 1000 MG/100 ML VIAL (NON FORMULARY) IVPB ONE (20:45)
[2020-05-31 20:59] VITALS: TEMP 98.9
[2020-05-31] MEDS ORDERED: ACETAMINOPHEN INJECTION 100 ML IVPB ONE (21:10)
[2020-05-31 21:14] LABS: BASO % 0.3 % (0-2.0); EOS % 0.3 % (0-4.5); HEMOGLOBIN 13.5 GM/dL (10.7-15.3); LYMPH % 20.7 % (8-40); MCH 31.4 pg (25.7-33.7); MCHC 33.6 g/dl (32.0-36.0); MEAN CELL VOLUME 93.3 fl (80-96); MEAN PLT VOLUME 9.4 fl (7.5-11.1); MONO % 7.3 % (3.8-10.2); NEUT % 71.4 % (42.8-82.8); PLATELET COUNT 207 K/MM3 (134-434); RBC 4.29 M/mm3 (3.60-5.2); RDW 12.9 % (11.6-15.6)
[2020-05-31 22:37] LABS: EPI CELLS 15 /uL (0-25.1); HYALINE CASTS 2 /uL (0-3.1); PH,URINE >= 9.0 (5.0-8.0); URINE APPEARANCE TURBID; URINE BACTERIA 29 /uL (0-1359); URINE BILIRUBIN 1+ (NEGATIVE); URINE COLOR ORANGE; URINE GLUCOSE (UA) NEGATIVE (NEGATIVE); URINE KETONE 3+ (NEGATIVE); URINE LEUK ESTERASE 1+ (NEGATIVE); URINE NITRITE NEGATIVE (NEGATIVE); URINE PROTEIN 2+ (NEGATIVE); URINE RBC 28604 /uL (0-23.9); URINE WBC 31 /uL (0-25.8)
[2020-05-31] MEDS ORDERED: SODIUM CHLORIDE 0.9% 500 ML INFUS.BAG IV ONE (22:40)
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
[2020-06-01 01:34] VITALS: BP 123/75; PULSE 100
== END 2020-06-01 00:25 | disposition home or self-care (01) ==
LOC: JER 20:15
PROC: 3E0333Z Introduction of Anti-inflammatory into Peripheral Vein, Percutaneous Approach (ICD-10-PCS; principal; 2020-05-31)
DX: O20.8 Other hemorrhage in early pregnancy (principal); O03.9 Complete or unspecified spontaneous abortion without complication
CPT/HCPCS: 36415; 76817-TC; 81003; 84702; 85025; 86850; 86900; 86901; 87086; 96374; 99284-25; J0131

== ENCOUNTER 2021-03-31 06:41 | Emergency (ER) | payer OTHER ==
[2021-03-31 07:10] VITALS: BMI 22.9
[2021-03-31] MEDS ORDERED: SODIUM CHLORIDE 0.9% 500 ML INFUS.BAG IV ONE (08:00)
[2021-03-31] MEDS ORDERED: KETOROLAC TROMETHAMINE 30 MG/1 ML VIAL IVPUSH ONE (08:00)
[2021-03-31] MEDS ORDERED: KETOROLAC TROMETHAMINE 30 MG/1 ML VIAL ONE (08:20)
[2021-03-31 09:11] LABS: URINE APPEARANCE CLOUDY; URINE BILIRUBIN NEGATIVE (NEGATIVE); URINE COLOR YELLOW; URINE GLUCOSE (UA) NEGATIVE (NEGATIVE); URINE KETONE NEGATIVE (NEGATIVE); URINE LEUK ESTERASE NEGATIVE (NEGATIVE); URINE NITRITE NEGATIVE (NEGATIVE); URINE PROTEIN NEGATIVE (NEGATIVE); URINE UROBILINOGEN 0.2 mg/dL (0.2-1.0)
[2021-03-31 09:13] LABS: BASO % 0.3 % (0-2.0); EOS % 2.4 % (0-4.5); HEMATOCRIT 40.9 % (32.4-45.2); HEMOGLOBIN 13.9 GM/dL (10.7-15.3); LYMPH % 27.9 % (8-40); MCH 31.6 pg (25.7-33.7); MCHC 33.8 g/dl (32.0-36.0); MEAN CELL VOLUME 93.4 fl (80-96); MEAN PLT VOLUME 8.3 fl (7.5-11.1); MONO % 8.9 % (3.8-10.2); NEUT % 60.5 % (42.8-82.8); PLATELET COUNT 242 10^3/uL (134-434); RBC 4.38 M/mm3 (3.60-5.2); RDW 12.8 % (11.6-15.6); WHITE BLOOD COUNT 7.1 K/mm3 (4.0-10.0)
[2021-03-31 09:59] LABS: BLOOD UREA NITROGEN 15.2 mg/dL (7-18); CALCIUM 8.7 mg/dL (8.5-10.1)
[2021-03-31 10:03] LABS: CREATININE 0.8 mg/dL (0.55-1.3)
[2021-03-31 10:04] LABS: BILIRUBIN,TOTAL 0.4 mg/dL (0.2-1); TOT PROT 7.4 g/dl (6.4-8.2)
[2021-03-31 11:01] VITALS: BP 105/72; PULSE 72; TEMP 97.1
== END 2021-03-31 10:30 | disposition home or self-care (01) ==
LOC: JER 06:41
PROC: 3E0333Z Introduction of Anti-inflammatory into Peripheral Vein, Percutaneous Approach (ICD-10-PCS; principal; 2021-03-31)
DX: M54.5 Low back pain (principal)
CPT/HCPCS: 36415; 80053; 81003; 85025; 87086; 99284-25

== ENCOUNTER 2021-08-12 10:10 | Emergency (ER) | payer OTHER ==
[2021-08-12 10:16] VITALS: TEMP 97.6; BMI 22.9
[2021-08-12 11:59] LABS: BASO % 0.2 % (0-2.0); EOS % 2.9 % (0-4.5); HEMOGLOBIN 13.8 GM/dL (10.7-15.3); LYMPH % 14.8 % (8-40); MCH 31.3 pg (25.7-33.7); MCHC 33.5 g/dl (32.0-36.0); MEAN CELL VOLUME 93.2 fl (80-96); MEAN PLT VOLUME 8.3 fl (7.5-11.1); MONO % 6.9 % (3.8-10.2); NEUT % 75.2 % (42.8-82.8); PLATELET COUNT 240 10^3/uL (134-434); RDW 12.6 % (11.6-15.6); WHITE BLOOD COUNT 8.5 K/mm3 (4.0-10.0)
[2021-08-12 12:31] LABS: ALBUMIN 3.7 g/dl (3.4-5.0); BLOOD UREA NITROGEN 12.8 mg/dL (7-18)
[2021-08-12 12:34] LABS: CREATININE 0.8 mg/dL (0.55-1.3)
[2021-08-12 12:35] LABS: BILIRUBIN,TOTAL 0.4 mg/dL (0.2-1); TOT PROT 7.5 g/dl (6.4-8.2)
[2021-08-12 13:07] LABS: SYPHILIS W/ RPR CONF NON-REACTIVE (NONREACTIVE)
[2021-08-12 13:36] LABS: HIV INTERPRETATION NEGATIVE (NEGATIVE)
[2021-08-12 14:03] LABS: EPI CELLS 4 /uL (0-25.1); HYALINE CASTS 1 /uL (0-3.1); URINE APPEARANCE CLEAR; URINE BACTERIA 102 /uL (0-1359); URINE BILIRUBIN NEGATIVE (NEGATIVE); URINE COLOR YELLOW; URINE GLUCOSE (UA) NEGATIVE (NEGATIVE); URINE KETONE NEGATIVE (NEGATIVE); URINE LEUK ESTERASE 2+ (NEGATIVE); URINE NITRITE NEGATIVE (NEGATIVE); URINE PROTEIN NEGATIVE (NEGATIVE); URINE RBC 18 /uL (0-23.9); URINE UROBILINOGEN 0.2 mg/dL (0.2-1.0); URINE WBC 335 /uL (0-25.8)
[2021-08-12] MEDS ORDERED: CEPHALEXIN MONOHYDRATE 500 MG CAPSULE (UD) PO ONE (14:54)
[2021-08-12 15:16] VITALS: BP 123/73; PULSE 85
[2021-08-12] MEDS ORDERED: CEPHALEXIN MONOHYDRATE 500 MG CAPSULE (UD) ONE (15:19)
== END 2021-08-12 15:25 | disposition home or self-care (01) ==
LOC: JER 10:10
DX: N39.0 Urinary tract infection, site not specified (principal); N10 Acute pyelonephritis
CPT/HCPCS: 36415; 74176-TC; 76775-TC; 80053; 81003; 84703; 85025; 86780; 87086; 87186; 87389; 87491; 87529; 87591; 99285-25